=== PATIENT | male | born 1940 | race Caucasian/White ===

== ENCOUNTER 2017-10-19 13:00 | Outpatient (CLI) | payer MEDICARE ==
--- NOTE | 2017-10-20 16:42 | DEXA Report ---
DEXA: 10/19/2017 CLINICAL INDICATION: History of osteopenia. TECHNIQUE: Dual energy x-ray absorptiometry (DXA) was performed on a [id number] system. Regions measured are the AP spine, femoral neck, and, if needed, forearm. COMPARISON: None. In accordance with the International Society for Clinical Densitometry (ISCD) guidelines, data from previous exams may be reanalyzed using current recommendations and techniques. This is done to allow a more accurate basis for comparison with the current study. FINDINGS LUMBAR SPINE DATA: REGION BMD (g/cm/cm) T-SCORE Z-SCORE L1 1.105 -0.5 -0.3 L2 1.204 -0.3 -0.2 L3 1.252 0.1 0.2 L4 1.490 2.1 2.2 TOTAL L1-L4 1.283 0.5 0.6 NOTE: All evaluable vertebrae are used for classification. HIP DATA: REGION BMD (g/cm/cm) T-SCORE Z-SCORE Neck 0.879 -1.5 -0.4 TOTAL 1.063 -0.3 0.4 NOTE: The femoral neck or total proximal femur, whichever is lowest, is used for classification. IMPRESSION THE WHO CLASSIFICATION BASED ON THE INTERNATIONAL REFERENCE STANDARD: OSTEOPENIA (REFERENCE LEFT FEMORAL NECK). FRACTURE RISK: INCREASED. RECOMMENDATION: Patients with diagnosis of osteoporosis or osteopenia should have regular bone mineral density assessment. For those eligible for Medicare, routine testing is allowed once every 2 years. Testing frequency can be increased for patients who have rapidly progressing disease or for those who are receiving medical therapy to restore bone mass. COMMENT: World Health Organization (WHO) definitions for osteoporosis and osteopenia: NORMAL BMD: T-score at -1.0 or higher, fracture risk is low. OSTEOPENIA BMD: T-score between -1.0 and -2.5, fracture risk is increased. OSTEOPOROSIS BMD: T-score at -2.5 or lower, fracture risk high. National Osteoporosis Foundation recommends: 1. Obtain adequate dietary calcium (at least 1200 mg per day) and vitamin D (400 -800 international units per day). 2. Participate, as appropriate, in regular weightbearing and muscle- strengthening exercise. 3. Avoid tobacco use and reduce alcohol and caffeine intake. 4. For more detailed information see the website at www.NOF.org. MTDD
== END 2017-10-19 13:01 | disposition home or self-care (01) ==
LOC: DI 13:00
PROVIDERS: ATTEND Physician Assistant
DX: M85.88 Other specified disorders of bone density and structure, other site (principal)
CPT/HCPCS: 77080

== ENCOUNTER 2018-04-05 22:48 | Emergency (ER) | payer MEDICARE ==
--- NOTE | 2018-04-05 23:33 | ED Physician Documentation ---
PD HPI UPPER EXT INJURY - Stated complaint Stated Complaint: RT INDEX FING LAC - Chief complaint Chief Complaint: Laceration - History obtained from History obtained from: Patient - History of Present Illness Location: Right, Finger Type of injury: Laceration Where injury occurred: Home Timing - onset: Enter time (13:30), Today Timing - details: Abrupt onset Similar symptoms before: Has not had sx before Recently seen: Not recently seen - Additonal information Additional information: sustained laceration right second digit (finger) from a knife while trying to cut an avocado. he is left-hand dominant. This occurred at approximately 1:30 PM today. he dressed the wound after the injury but tonight he noticed bleeding had recurred and when he reexamined the wound, he realized it was deeper than initially perceived. Review of Systems Skin: reports: Laceration (s) Neurologic: denies: Focal weakness, Numbness PD PAST MEDICAL HISTORY - Past Medical History Past Medical History: Yes Cardiovascular: Hypertension - Past Surgical History Past Surgical History: Yes Cardiovascular: Coronary stent - Present Medications Home Medications: Ambulatory Orders Medication Instructions Recorded Confirmed Atorvastatin [Lipitor] 5 mg PO DAILY 04/05/18 04/05/18 Omeprazole 1 cap PO DAILY 04/05/18 04/05/18 hydroCHLOROthiazide [Hydrodiuril] 1 tab PO DAILY 04/05/18 04/05/18 - Allergies Allergies/Adverse Reactions: Allergies Allergy/AdvReac Type Severity Reaction Status Date / Time No Known Drug Allergies Allergy Verified 04/05/18 23:52 - Social History Does the pt smoke?: No Smoking Status: Never smoker Does the pt drink ETOH?: No Does the pt have substance abuse?: No - Immunizations Immunizations are current?: Yes - POLST Patient has POLST: No PD ED PE NORMAL - Vitals Vital signs reviewed: Yes - General General: Alert and oriented X 3, No acute distress - Neuro Neuro: No motor deficit, No sensory deficit PD ED PE EXPANDED - Extremities MAICOL UE/Hands Visual: 1 - laceration (1 cm laceration lateral (radial) aspect to nail (but no involvement of nail or nailbed)) Results - Vitals Vitals: Vital Signs - 24 hr 04/05/18 04/06/18 22:52 01:30 Temperature 36.5 C Heart Rate 78 74 Respiratory 16 16 Rate Blood Pressure 145/71 H 136/75 H O2 Saturation 95 100 Oxygen O2 Source Room air Procedures - Laceration (location) Finger right Length in cm: 1 Wound type: Linear, Into subcut fat, Clean Neurovascular status: Sensory intact, Motor intact, Vascular intact Tendon involvement: Tendon intact Anesthesia: Lidocaine 1% Wound Preparation: Chlorhexadine Skin layer closure: Nylon, Running, Size #-0 - enter number (5-0) Other: Patient tolerated well, No complications, Neurovascular intact, Dressing applied Complexity: Simple PD MEDICAL DECISION MAKING - ED course Complexity details: considered differential, d/w patient Departure - Departure Disposition: 01 Home, Self Care Clinical Impression: Laceration of finger Condition: Good Instructions: ED Laceration Hand Follow-Up: Chrissy High PA [Primary Care Provider] - Comments: Follow up with your doctor in one week for removal of the stitches Discharge Date/Time: 04/06/18 01:30
[2018-04-05] MEDS ORDERED: LIDOCAINE 1% 2 ML VIAL SUBQ STA (23:49)
[2018-04-06] MEDS ORDERED: LIDOCAINE 1% 2 ML VIAL ONE (00:01)
[2018-04-06] MEDS ORDERED: IBUPROFEN 600 MG TABLET PO STA (01:44)
[2018-04-06] MEDS ORDERED: BACITRACIN OINT TOP STA (01:50)
[2018-04-06 02:09] VITALS: BP 136/75
== END 2018-04-06 01:30 | disposition home or self-care (01) ==
LOC: ED 22:48
DX: S61.210A Laceration without foreign body of right index finger without damage to nail, initial encounter (principal); W26.0XXA Contact with knife, initial encounter; Y93.G1 Activity, food preparation and clean up; I10 Essential (primary) hypertension; Z95.5 Presence of coronary angioplasty implant and graft
CPT/HCPCS: 12001; 99282; 99283; A9270

== ENCOUNTER 2019-10-05 11:10 | Outpatient (CLI) | payer MEDICARE ==
--- NOTE | 2019-10-06 12:51 | Ultrasound Report ---
Reason: DVT LT Procedure Date: 10/05/2019 Accession Number: [id number] / [id number] Procedure: US - Duplex Ext Veins Left CPT Code: Final Report FULL RESULT: EXAM: LEFT LOWER EXTREMITY VENOUS ULTRASOUND EXAM DATE: 10/05/2019 12:03 PM. CLINICAL HISTORY: DVT LT. History of left lower extremity DVT status post trauma. COMPARISON: None. TECHNIQUE: Real-time sonographic vascular imaging was performed by the bundle collector through the lower extremity utilizing both color-flow and Doppler spectral analysis. Multiple customer operations representative static images were saved for review. FINDINGS: Common Femoral Vein (CFV): Normal. CFV-GSV Junction: Normal. Profunda Femoral Vein (PFV): Normal. Femoral Vein (FV) Prox: Normal. Femoral Vein (FV) Mid: Normal. Femoral Vein (FV) Dist: Normal. Popliteal Vein: Normal. Posterior Tibial Veins: Not well visualized, grossly patent. Peroneal Veins: Not well visualized, grossly patent. Other: None. IMPRESSION: No evidence for deep venous thrombosis. RADIA
== END 2019-10-05 11:11 | disposition home or self-care (01) ==
LOC: DI 11:10
PROVIDERS: ATTEND Physician Assistant
DX: I82.402 Acute embolism and thrombosis of unspecified deep veins of left lower extremity (principal)

== ENCOUNTER 2021-01-25 10:57 | Outpatient (CLI) | payer MEDICARE | END 2021-01-25 10:58 | disposition short-term general hospital (02) | LOC: EMS 10:57 | DX: R47.02 Dysphasia (principal) | CPT/HCPCS: A0425; A0429 ==

== ENCOUNTER 2021-05-27 07:53 | Outpatient (CLI) | payer MEDICARE ==
--- NOTE | 2021-05-27 12:33 | Ultrasound Report ---
PROCEDURE: Abdomen Complete INDICATIONS: ABD PAIN TECHNIQUE: Real-time scanning was performed of the abdominal and retroperitoneal organs, with image documentatio n. COMPARISON: None. FINDINGS: Liver: Liver is normal in size and homogeneous in echotexture. A slightly hyperechoic echotexture. Gallbladder: The gallbladder is normal without stones, sludge, wall thickening, or pericholecystic fl uid. Biliary ducts: Intrahepatic bile ducts are non-dilated. Extrahepatic bile duct caliber measures 3.1 mm. Normal is 6-7 mm or less in diameter, or 10 mm or less post-cholecystectomy. Pancreas: Visualized portions of the pancreas are sonographically normal. Spleen: Spleen is normal in size and homogeneous in echotexture. Kidneys: Kidneys are normal in size and echotexture. Right kidney measures 10.9 cm long; left kidne y measures 11.7 cm long. No hydronephrosis or nephrolithiasis. No solid masses. Cortical cyst monica ing from the lower pole of the right kidney, one arising from the midpole region, and another within the cortex, the largest measuring 2.5 cm. Septated, slightly irregular cyst in the upper pole of left kidney measuring 2.2 cm. Aorta: Visualized aorta is normal in caliber at less than 3 cm. Calcific plaque in the distal abdom inal aorta. Iliacs: Proximal common iliac arteries are normal in caliber at less than 2.5 cm. IVC: Intrahepatic inferior vena cava is patent. Miscellaneous: No free abdominal fluid. No abnormalities in the right lower quadrant area of pain. IMPRESSION: 1. No abnormalities visible in the right lower quadrant area of pain. 2. Mild hepatic steatosis or other intrinsic liver disease. 3. Normal sonographic appearance of the gallbladder. 4. Bilateral renal cysts. Reviewed by: Jennifer Vizcarra MD on 05/27/2021 12:31 PM PDT Approved by: Jennifer Vizcarra MD on 05/27/2021 12:31 PM PDT Station ID: [id number]
== END 2021-05-27 07:54 | disposition home or self-care (01) ==
LOC: DI 07:53
PROVIDERS: ATTEND Nurse Practitioner Family
DX: R10.9 Unspecified abdominal pain (principal); N28.1 Cyst of kidney, acquired

== ENCOUNTER 2021-05-29 16:45 | Emergency (ER) | payer MEDICARE ==
--- NOTE | 2021-05-29 17:03 | ED Physician Documentation ---
PD HPI FOCAL NEURO - Stated complaint Stated Complaint: CONFUSION,TROUBLE SPEAKING - History obtained from History obtained from: Patient, Family - Additional information Additional information: 80-year-old gentleman presents by private vehicle accompanied by his for evaluation of potential strokelike symptoms. She thinks starting last night but more obvious today he has had memory difficulties. Specifically she notes that there was a suspicious credit card transaction and he could not really verbalize what it was for. This is very atypical for him. 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 He denies headache. Review of Systems Ten Systems: 10 systems reviewed and negative Constitutional: reports: Reviewed and negative Eyes: reports: Reviewed and negative Ears: reports: Reviewed and negative Nose: reports: Reviewed and negative Throat: reports: Reviewed and negative Cardiac: reports: Reviewed and negative Respiratory: reports: Reviewed and negative PD PAST MEDICAL HISTORY - Past Medical History Cardiovascular: Hypertension GI: GERD - Past Surgical History Past Surgical History: Yes Ortho: Other Cardiovascular: Coronary stent - Present Medications Home Medications: Ambulatory Orders Medication Instructions Recorded Confirmed Atorvastatin [Lipitor] 5 mg PO DAILY 04/05/18 05/29/21 Omeprazole 1 cap PO DAILY 04/05/18 05/29/21 hydroCHLOROthiazide [Hydrodiuril] 1 tab PO DAILY 04/05/18 05/29/21 - Allergies Allergies/Adverse Reactions: Allergies Allergy/AdvReac Type Severity Reaction Status Date / Time No Known Drug Allergies Allergy Verified 05/29/21 17:06 - Social History Does the pt smoke?: No Smoking Status: Never smoker Does the pt drink ETOH?: No Does the pt have substance abuse?: No - Immunizations Immunizations are current?: Yes - POLST Patient has POLST: No PD ED PE NORMAL - Vitals Vital signs reviewed: Yes - General General: Alert and oriented X 3, No acute distress, Well developed/nourished - HEENT HEENT: PERRL, EOMI - Neck Neck: Supple, no meningeal sign, No bony TTP - Cardiac Cardiac: RRR, No murmur - Respiratory Respiratory: No respiratory distress, Clear bilaterally - Abdomen Abdomen: Normal bowel sounds, Soft, Non tender - Back Back: No CVA TTP, No spinal TTP - Derm Derm: Normal color, Warm and dry - Extremities Extremities: No edema, No calf tenderness / cord - Neuro Neuro: Alert and oriented X 3, No motor deficit, No sensory deficit, Normal speech, Other (Very interesting neurologic exam. Ask him what he had for liudmila carranza, he said nothing. The corrected him and said he had cereal with berries. He said that that was actually his lunch. He knows the month the day and the year, he is fluent verbalize her but intermittently is confused re short) - Psych Psych: Normal mood, Normal affect NIHSS - Time Time: 17:00 - Level of Consciousness Level of consciousness: (0) Alert, Keenly responsive LOC Questions: (0) Answers both Q's correct LOC Commands: (0) Performs both correctly - Gaze Best Gaze: (0) Normal - Visual Visual: (0) No loss - Facial Palsy Facial Palsy: (0) Normal, symmetrical movement - Motor Arms (both separate) Motor Arm (right): (0) No drift Motor Arm (left): (0) No drift - Motor Legs (both separate) Motor Leg (right): (0) No drift Motor Leg (left): (0) No drift - Limb Ataxia Limb Ataxia: (0) Absent - Sensory Sensory: (0) Normal - Best Language Best Language: (1) [id number] - Dysarthria Dysarthria: (0) Normal - Extinction and Inattention (formally neg Extinction and inattention: (0) No abnormality - Total Score/Results Total Score/Result: 1 Results - Vitals Vitals: Vital Signs - 24 hr 05/29/21 05/29/21 17:00 19:06 Temperature 36.6 C Heart Rate 65 64 Respiratory 17 21 Rate Blood Pressure 135/77 H 158/80 H O2 Saturation 97 96 Oxygen O2 Source Room air - EKG (time done) 1704 Rate: Rate (enter#) (64) Rhythm: NSR [place]: Normal Intervals: Normal ID QRS: Normal Ischemia: Normal ST segments - Labs Labs: Laboratory Tests 05/29/21 05/29/21 05/29/21 17:17 17:24 17:24 WBC 8.2 RBC 5.09 Hgb 14.6 Hct 42.9 MCV 84.3 MCH 28.7 MCHC 34.0 RDW 16.5 H Plt Count 210 MPV 9.5 Neut # (Auto) 3.6 Lymph # (Auto) 3.0 [place] # (Auto) 1.2 H Eos # (Auto) 0.3 Baso # (Auto) 0.1 Absolute Nucleated RBC 0.00 Nucleated RBC % 0.0 PT 12.9 H INR 1.2 Sodium Potassium Chloride Carbon Dioxide Anion Gap BUN Creatinine Estimated GFR (MDRD) Glucose POC Whole Bld Glucose 61 L Calcium Nasal Adenovirus (PCR) Nasal B. parapertussis DNA (PCR) Nasal Coronavir 229E PCR Nasal Coronavir HKU1 PCR Nasal Coronavir NL63 PCR Nasal Coronavir OC43 PCR Nasal Enterovir/Rhinovir PCR Nasal Influenza B PCR Nasal Influenza A PCR Nasal Parainfluen 1 PCR Nasal Parainfluen 2 PCR Nasal Parainfluen 3 PCR Nasal Parainfluen 4 PCR Nasal RSV (PCR) Nasal B.pertussis DNA PCR Nasal C.pneumoniae (PCR) Josesito Human Metapneumo PCR Nasal M.pneumoniae (PCR) Nasal SARS-CoV-2 (PCR) Ethyl Alcohol 05/29/21 05/29/21 17:24 18:27 WBC RBC Hgb Hct MCV MCH MCHC RDW Plt Count MPV Neut # (Auto) Lymph # (Auto) [place] # (Auto) Eos # (Auto) Baso # (Auto) Absolute Nucleated RBC Nucleated RBC % PT INR Sodium 140 Potassium 3.7 Chloride 101 Carbon Dioxide 28 Anion Gap 11.0 BUN 18 Creatinine 1.2 Estimated GFR (MDRD) 58 L Glucose 73 POC Whole Bld Glucose Calcium 9.6 Nasal Adenovirus (PCR) NOT DETECTED Nasal B. parapertussis DNA (PCR) NOT DETECTED Nasal Coronavir 229E PCR NOT DETECTED Nasal Coronavir HKU1 PCR NOT DETECTED Nasal Coronavir NL63 PCR NOT DETECTED Nasal Coronavir OC43 PCR NOT DETECTED Nasal Enterovir/Rhinovir PCR DETECTED A Nasal Influenza B PCR NOT DETECTED Nasal Influenza A PCR NOT DETECTED Nasal Parainfluen 1 PCR NOT DETECTED Nasal Parainfluen 2 PCR NOT DETECTED Nasal Parainfluen 3 PCR NOT DETECTED Nasal Parainfluen 4 PCR NOT DETECTED Nasal RSV (PCR) NOT DETECTED Nasal B.pertussis DNA PCR NOT DETECTED Nasal C.pneumoniae (PCR) NOT DETECTED Josesito Human Metapneumo PCR NOT DETECTED Nasal M.pneumoniae (PCR) NOT DETECTED Nasal SARS-CoV-2 (PCR) NOT DETECTED Ethyl Alcohol < 5.0 - Rads (name of study) CT angiography of the head and neck Radiology: EMP read contemporaneously (50% stenosis of left carotid bulb, otherwise negative exam.) PD MEDICAL DECISION MAKING - ED course ED course: 81-year-old gentleman with TIA symptoms versus CVA symptoms. Have been ongoing for about 24 hours on arrival so TPA was not further considered. Could also be transient global amnesia but seems a little atypical for that. CTA of the head and neck as shown. He was administered aspirin. No MRI available tomorrow and he is persistently symptomatic so probably will need observation for MRI. [facility] was called for transfer. Per the [facility], [facility] said that we could send him anywhere and [facility] was called. He was accepted by Dr. Christy Arias in [place], cobras are completed and he is stable for transport. Departure - Departure Disposition: 02 Transfer Acute Care Hosp Clinical Impression: Stroke-like symptom Condition: Stable Discharge Date/Time: 05/29/21 20:31
[2021-05-29] MEDS ORDERED: IOVERSOL 320 100 ML VIAL IVP ONE ×2 (17:12→17:43)
[2021-05-29 17:32] LABS: BASOPHILS # (AUTO) 0.1 10^3/uL (0.0-0.1); BASOPHILS % (AUTO) 1.2 %; EOSINOPHILS # (AUTO) 0.3 10^3/uL (0.0-0.7); EOSINOPHILS % (AUTO) 3.6 %; HCT - HEMATOCRIT 42.9 % (42.0-52.0); HGB - HEMOGLOBIN 14.6 g/dL (14.0-18.0); LYMPHOCYTES % (AUTO) 35.9 %; MEAN CORPUSCULAR HEMOGLOBIN 28.7 pg (27.0-31.0); MEAN CORPUSCULAR VOLUME 84.3 fL (80.0-94.0); MEAN PLATELET VOLUME 9.5 fL (7.4-11.4); MONOCYTES # (AUTO) 1.2 10^3/uL (0.0-1.0); NEUTROPHILS # (AUTO) 3.6 10^3/uL (1.5-6.6); NEUTROPHILS % (AUTO) 44.2 %; PLT - PLATELET COUNT 210 10^3/uL (130-450); RED BLOOD COUNT 5.09 10^6/uL (4.70-6.10); RED CELL DISTRIBUTION WIDTH 16.5 % (12.0-15.0); WHITE BLOOD COUNT 8.2 x10^3/uL (4.8-10.8)
[2021-05-29 17:41] LABS: BUN - BLOOD UREA NITROGEN 18 mg/dL (6-20); CALCIUM 9.6 mg/dL (8.5-10.3); CARBON DIOXIDE - CO2 28 mmol/L (21-32); CHLORIDE 101 mmol/L (101-111); CREATININE 1.2 mg/dL (0.6-1.2); ETOH - ETHANOL < 5.0 mg/dL; GFR - MDRD 58 (>89); GLUCOSE 73 mg/dL (70-100); POTASSIUM 3.7 mmol/L (3.5-5.0); SODIUM 140 mmol/L (135-145)
[2021-05-29 17:50] LABS: INR 1.2 (0.8-1.2); PT - PROTHROMBIN TIME 12.9 secs (9.9-12.6)
--- NOTE | 2021-05-29 17:58 | CT Report ---
PROCEDURE: ANGIO HEAD W/WO INDICATIONS: stroke like symptoms CONTRAST: IV CONTRAST: Optiray 320 ml: 80 PO CONTRAST: *NO PO CONTRAST TECHNIQUE: Precontrast 4.5 mm thick angled axial sections acquired from the foramen magnum to the vertex. Afte r the administration of intravenous contrast, 1 mm thick sections acquired through the [place] of [place] is. Postcontrast 4.5 mm thick sections then re-acquired from the foramen magnum to the vertex. 3-di mensional uqfpneb-klyjulsot-jphdeqxvuh (MIP) and/or volume rendering reformats were acquired of the c entral intracranial vasculature. For radiation dose reduction, the following was used: automated ex posure control, adjustment of mA and/or kV according to patient size. COMPARISON: Correlation is made with the accompanying neck CT angiogram, 05/29/2021 FINDINGS: Image quality: Excellent. Anterior circulation: Intracranial internal carotid arteries demonstrate generalized calcification a nd irregularity, yet without a hemodynamically significant stenosis. The flow within the paired anter ior cerebral arteries is normal and symmetric. The flow within the middle cerebral arteries is ruth l and symmetric. The anterior communicating artery is seen. No aneurysms are seen. Posterior circulation: Visualized portions of the vertebral arteries demonstrate normal caliber, and join to form a normal appearing basilar artery. Flow within the posterior cerebral arteries is norm al and symmetric. No aneurysms are seen. CSF spaces: Ventricles are normal in size and shape. Basal cisterns are patent. No extra-axial flu id collections. Brain: No midline shift. No intracranial bleeds or masses. [place]-white matter interface appears int act. Skull and face: Calvarium and facial bones appear intact, without suspicious lesions. Sinuses: Visualized sinuses and mastoids are clear. IMPRESSION: No significant intracranial abnormality is seen. No significant intracranial arterial abnormalities are seen. Reviewed by: Anatoly Swann MD on 05/29/2021 4:56 PM MADAN Approved by: Anatoly Swann MD on 05/29/2021 4:56 PM MADAN Station ID: [id number]
--- NOTE | 2021-05-29 18:00 | CT Report ---
PROCEDURE: ANGIO NECK W INDICATIONS: stroke like symptoms CONTRAST: IV CONTRAST: Optiray 320 ml: 80 PO CONTRAST: *NO PO CONTRAST TECHNIQUE: After the administration of intravenous contrast, 1.5 mm axial sections acquired from the aortic arch to the [place] of [place]. Coronal 3-D maximum intensity projection (MIP) and/or volume rendering ref ormats were then performed. For radiation dose reduction, the following was used: automated exposur e control, adjustment of mA and/or kV according to patient size. COMPARISON: Correlation is made with the accompanying head CT angiogram, 05/29/2021. FINDINGS: Image quality: Excellent. Carotid system: The great vessels demonstrate a conventional anatomy as they arise from the aortic a rch. The origins of the common carotid arteries appear patent. The common carotid arteries demonstr ate normal calibers and courses. The bifurcation regions demonstrate atherosclerotic irregularity an d calcification. There is approximately 50% narrowing seen involving the left proximal internal carot id artery. There is approximately 20% narrowing seen involving the right proximal internal carotid ar farida. Posterior circulation: The origins of the vertebral arteries appear patent. The more superior porti ons of the vertebral arteries demonstrate normal course and caliber. The left vertebral artery is dom inant to the right. Soft tissues: Visualized neck soft tissues demonstrate no suspicious abnormalities. The thyroid is normal in size and there are no incidental findings. Bones: No suspicious bony lesions. Visualized cervical spine appears normally aligned. Relatively prominent lower cervical spine degenerative changes can be seen. IMPRESSION: No hemodynamically significant stenosis can be seen within the arteries of the neck. Atherosclerotic calcification and irregularity can be seen involving the carotid bifurcations, with a pproximately 50% narrowing seen on the left. Incidental note is made of: Relatively prominent lower cervical spine degenerative change. The estimate of stenosis included in the report of the imaging study was calculated using the NASCET method Reviewed by: Anatoly Swann MD on 05/29/2021 4:59 PM MADAN Approved by: Anatoly Swann MD on 05/29/2021 4:59 PM MADAN Station ID: [id number]
[2021-05-29] MEDS ORDERED: ASPIRIN 325 MG TABLET PO STA (18:23)
[2021-05-29 19:08] VITALS: BP 158/80
[2021-05-29 19:31] LABS: B. PARAPERTUSSIS- RESP PCR PAN NOT DETECTED; B. PERTUSSIS- RESP PCR PANEL NOT DETECTED; C. PNEUMONIAE- RESP PCR PANEL NOT DETECTED; CORONAVIRUS 229E-RESP PCR NOT DETECTED; CORONAVIRUS HKU1-RESP PCR NOT DETECTED; CORONAVIRUS NL63-RESP PCR NOT DETECTED; CORONAVIRUS OC43-RESP PCR NOT DETECTED; HUMAN METAPNEUMOVIRUS NOT DETECTED; INFLUENZA A- RESP PCR PANEL NOT DETECTED; INFLUENZA B - RESP PCR PANEL NOT DETECTED; M. PNEUMONIAE- RESP PCR PANEL NOT DETECTED; PARAINFLUENZA VIRUS 1 NOT DETECTED; PARAINFLUENZA VIRUS 2 NOT DETECTED; PARAINFLUENZA VIRUS 3 NOT DETECTED; PARAINFLUENZA VIRUS 4 NOT DETECTED; RHINOVIRUS/ENTEROVIRUS DETECTED; RSV- RESP PCR PANEL NOT DETECTED; SARS-CoV-2 -RESP PCR PANEL NOT DETECTED
== END 2021-05-29 20:31 | disposition short-term general hospital (02) ==
LOC: ED 16:45
DX: R41.3 Other amnesia (principal); R41.0 Disorientation, unspecified; R47.01 Aphasia; Z86.73 Personal history of transient ischemic attack (TIA), and cerebral infarction without residual deficits; I10 Essential (primary) hypertension; Z20.822 Contact with and (suspected) exposure to COVID-19
CPT/HCPCS: 36415; 70496; 70498; 80048; 85025; 85610; 87631; 93005; 99283; 99285; A9270; G0480; Q9967; 0202U; 80320

== ENCOUNTER 2021-05-29 20:29 | Outpatient (CLI) | payer MEDICARE | END 2021-05-29 20:30 | disposition short-term general hospital (02) | LOC: EMS 20:29 | PROVIDERS: ATTEND Emergency Medicine | DX: R41.82 Altered mental status, unspecified (principal) | CPT/HCPCS: A0425; A0426 ==

== ENCOUNTER 2022-03-31 13:21 | Outpatient (CLI) | payer MEDICARE ==
--- NOTE | 2022-03-31 14:27 | XRAY Report ---
PROCEDURE: Ribs Bilat w/Chest 4 View INDICATIONS: RIB PAIN TECHNIQUE: 4 views of the bilateral ribs were acquired, along with a single view chest. COMPARISON: None FINDINGS: Surgical changes and devices: None. Bones and chest wall: No fractures or dislocations. No suspicious bony lesions. Overlying soft tis sues appear unremarkable. Lungs and pleura: No pleural effusions or pneumothorax. Lungs appear clear. Mediastinum: Mediastinal contours appear normal. Heart size is normal. IMPRESSION: No acute fracture. No osseous lesion. If symptoms and/or clinical suspicion for pathology continue, f urther assessment with repeat plain films, or advanced imaging (e.g., CT or bone scan) is recommended for further assessment. Reviewed by: Boy Maxwell MD on 03/31/2022 2:25 PM PDT Approved by: Boy Maxwell MD on 03/31/2022 2:25 PM PDT Station ID: [id number]
--- NOTE | 2022-03-31 14:41 | XRAY Report ---
PROCEDURE: Shoulder 2 View LT INDICATIONS: XRAY TECHNIQUE: 3 views of the shoulder were acquired. COMPARISON: None. FINDINGS: Bones: No acute fractures or dislocations. No suspicious bony lesions. Visualized ribs appear inta ct. Moderate degenerative changes are seen in the acromioclavicular joint. Soft tissues: No suspicious soft tissue calcifications. Aortic atherosclerotic calcifications are p resent. IMPRESSION: Moderate acromioclavicular joint osteoarthrosis. No acute osseous abnormality. If sympto ms persist or there is continued clinical concern, further evaluation with MRI or CT may be helpful. Reviewed by: Khoa Marie MD on 03/31/2022 2:40 PM PDT Approved by: Khoa Marie MD on 03/31/2022 2:40 PM PDT Station ID: [id number]
--- NOTE | 2022-03-31 17:19 | XRAY Report ---
PROCEDURE: Cervical Spine 2 View INDICATIONS: Pain TECHNIQUE: 3 view(s) of the cervical spine were acquired. COMPARISON: None. FINDINGS: Bones: No fractures or dislocations to the T1 level. The lateral masses of C1 appear intact on the odontoid view. No suspicious bony lesions. Severe C5-C6 and C6-7 C7 degenerative disease. Moderate C 7-T1 again disease. Mild C3-C3, C3-C4 and C4-C5 degenerative disease. Mild facet arthropathy noted th roughout the cervical spine. Soft tissues: No prevertebral soft tissue swelling. IMPRESSION: 1. Multilevel degenerative disc disease. 2. Multilevel facet arthropathy. 3. No fracture. No acute osseous lesion. If there is continued clinical concern for pathology, then M RI should be considered for further evaluation. Reviewed by: Rosita Saleh MD, PhD on 03/31/2022 5:18 PM PDT Approved by: Rosita Saleh MD, PhD on 03/31/2022 5:18 PM PDT Station ID: [id number]
== END 2022-03-31 13:22 | disposition home or self-care (01) ==
LOC: DI.S 13:21
PROVIDERS: ATTEND Physician Assistant
DX: M50.31 Other cervical disc degeneration, high cervical region (principal); M47.812 Spondylosis without myelopathy or radiculopathy, cervical region; R07.81 Pleurodynia; M19.012 Primary osteoarthritis, left shoulder

== ENCOUNTER 2022-08-25 14:21 | Outpatient (CLI) | payer MEDICARE ==
--- NOTE | 2022-08-25 15:12 | SLEEP CARE CONSULTATION ---
Information from patient questionnaire entered by Francisca Morales MA. I have reviewed and concur with the information entered by Francisca Morales MA. This document represents the service I personally performed and the decisions made by me, Judith Lyn ARNP. History of Present Illness Service Date and Time: 08/25/2022 1421 Reason for Visit: New patient, Previously diagnosed sleep apnea, sleep apnea on CPAP therapy Chief Complaint: reports: Snoring, Observed pauses in breathing Date of Onset: MANY YEARS Usual bedtime: 10-11PM Time it takes to fall asleep: HALF AN HOUR Snores at night: Yes Observed to quit breathing while asleep: Yes Sleeps alone due to snoring: No Number of times waking at night: 3-4 Reasons for waking at night: reports: Bathroom Toss, Turn, or Twitch while sleeping: No Recalls having dreams: No Usually gets out of bed at: 7-8 Feels refreshed in the morning: No Morning headache: No Sleepy or fatigued during the day: Yes Ever fallen asleep while driving: No Takes day naps: No Dreams during day naps: No Prior sleep studies: Yes Year and Where: UNKNOWN; over 10 years ago Additional HPI information: LUCILA MARRUFO was previously diagnosed to have unknown, AHI unknown, sleep apnea-hypopnea syndrome and comes in today to establish care for [CPAP][BIPAP] therapy. - Parasomnia Symptoms Ever been unable to move upon waking from sleep: No Walks in sleep: No Talks in sleep: No Ever acted out dreams in sleep: No Ever felt weak in the knees when startled or emotional: No Bothered by creepy, crawly, restless sensations in legs: No Problems with memory or concentration: Yes CPAP Compliance Data - Data Reviewed with Patient Average duration of nightly device use: 6 hours 13 secs Compliance rate %: 81.8 (142/154 days used: 02-15-21 to 07-18-2021) Current pressure setting (cmH2O): 6-20 Average residual AHI: 1.4 Central apnea: 0.4 Obstructive apnea: 0 Hypopnea: 1 Average large leak: 1.1 Lmin Compliance data discussion: He states it has been "a long time" since he got last CPAP machine, REMstar System One 60 series. He uses his CPAP regularly. He gets his supplies when he calls his DME supplier [employer]. He uses a nasal cushion mask and changes the cushion every 18 months. Subjective Missed days of use due to: reports: other (get up for bathroom and doesn't put mask back on) Patient concerns: denies: aerophagia, mask discomfort, air blowing in eyes, mask leak noise, condensation in mask/hose, nasal congestion, dry mouth, nose, throat, epistaxis Observed to snore while using device: No Current pressure setting perceived as: comfortable On therapy, patient: reports: sleeping better, awakening more refreshed, being more awake and alert during the day, more rested overall. denies: drowsiness while driving Initial [place] Sleepiness Scale score: 12 (08/2022) Past Medical History Past Medical History: reports: Hypertension, GERD, Other (STROKE 2019; high cholesterol) Social History The patient's occupation is a RE. Patient is and lives in [place]. Have you smoked in the past 12 months: No Alcohol use: Yes Alcohol amount and frequency: 2 GLASSES WEEK Caffeine use: No Family History Family history of sleep disordered breathing: No Allergies and Home Medications Known drug allergies: No Drug allergies reviewed: Yes (NKDA) Home medication list reviewed: Yes Allergy and home medication list: Allergies No Known Drug Allergies Allergy (Verified 05/29/21 17:06) Medications: HCTZ Atorvastatin Pradaxa Pantoprazole Review of Systems Ear/Nose/Throat: reports: tonsillectomy Physical Exam Vital signs obtained and entered by: [facility] Blood Pressure: 124/60 (LEFT ARM) Cuff size: regular Heart Rate: 74 O2 Saturation: 97 Height: 5 ft 11 in Weight: 191 lb 6.4 oz Body Mass Index: 26.6 BMI Classification: Overweight Neck circumference: 16 Heart: regular rate and rhythm, murmur Lungs: clear bilaterally Impression and Plan 1. Obstructive Sleep Apnea-Hypopnea Syndrome, unknown, with good treatment compliance and good apnea control. On CPAP therapy, the patient has better sleep quality and is more rested overall. Patient has an old REMstar System One. His SD card was full and did not have his current therapy report. Patient is eligible for an update of his machine. We need to obtain a copy of his last sleep study to be able to order this for him. His has been dealing with [employer] for his supplies, he is with [employer]. He states he would rather not have to repeat the sleep study. We will try to get the sleep study first and then order a new device for the patient. Patient's apnea severity and rationale for treatment to reduce apnea, improve sleep quality and reduce cardiovascular and cerebrovascular events was reviewed. I also reviewed the benefit of consistent device use of CPAP for hypertension, cerebrovascular disease (stroke) and gastric reflux. He states he may be leaving [facility] in the next month for [place], [place]. We can do telehealth folllow ups with him if he is not local. He voiced understanding. * Continue auto CPAP pressure at 6-20 cmH2O * Obtain copy of last sleep study to order new device and supplies * Notify me if snoring with mask or feeling that the pressure is too much or too little * Call this office if any problems using CPAP * Return for follow up after obtaining new CPAP, or sooner if concerns arise Counseling Topics: Spare mask, Weight loss health impact Visit Type: In Office Time Spent with Patient (minutes): 32 Provider Statement: I spent 100% of the Face to Face Visit with the patient with greater than 50% spent counseling the patient and coordination of care.
[2022-08-25 15:13] VITALS: BP 124/60
== END 2022-08-25 14:22 | disposition home or self-care (01) ==
LOC: SC 14:21
PROVIDERS: ATTEND Nurse Practitioner Family
DX: G47.33 Obstructive sleep apnea (adult) (pediatric) (principal); E66.3 Overweight; Z68.26 Body mass index [BMI] 26.0-26.9, adult
CPT/HCPCS: 99203; G0463; 99212

== ENCOUNTER 2023-02-22 14:43 | Outpatient (CLI) | payer MEDICARE ==
--- NOTE | 2023-02-22 14:33 | SLEEP CARE CONSULTATION ---
Information from patient questionnaire entered by Keshia Fitzgerald. I have reviewed and concur with the information entered by Keshia Fitzgerald. This document represents the service I personally performed and the decisions made by me, Judith Lyn ARNP. History of Present Illness Service Date and Time: 02/22/2023 1400 Previous diagnosis: Severe, Obstructive Sleep Apnea-Hypopnea Syndrome AHI: 50.6 (in 2003) Reason for follow up: first compliance after device update Equipment type: CPAP (RESMED Airsense 11, s/u 09/2022) Equipment obtained from: [employer] (getting supplies) Mask style: Nasal Backup mask available: Yes (old mask) Prior sleep studies: Yes Year and Where: UNKNOWN; over 10 years ago HPI additional information: LUCILA MARRUFO was diagnosed to have severe, AHI 50.6, obstructive sleep apnea- hypopnea syndrome and returns via video telehealth visit today for CPAP therapy first compliance after updating device follow-up. Sleep Study - Results Prior sleep studies: Yes Year and Where: UNKNOWN; over 10 years ago CPAP Compliance Data - Data Reviewed with Patient Average duration of nightly device use: 4 hours 24 minutes Compliance rate %: 60 (29/30 days used) Current pressure setting (cmH2O): 6-20 (avg 6.9) Average residual AHI: 0.6 Central apnea: 0.6 Obstructive apnea: 0 Average large leak: 1.0 lpm Subjective Missed days of use due to: reports: other (takes mask off during the night) Patient concerns: reports: dry mouth, nose, throat (not bad, just takes a sip of water at night). denies: aerophagia, mask discomfort, air blowing in eyes, mask leak noise, condensation in mask/hose, nasal congestion, epistaxis Observed to snore while using device: No Current pressure setting perceived as: comfortable On therapy, patient: reports: sleeping better, awakening more refreshed, being more awake and alert during the day, more rested overall. denies: drowsiness while driving Initial [place] Sleepiness Scale score: 12 (08/2022) Current [place] Sleepiness Scale score: 2 (02/22/23) Allergies and Home Medications Known drug allergies: No Drug allergies reviewed: Yes Home medication list reviewed: Yes (no changes) Allergy and home medication list: Allergies No Known Drug Allergies Allergy (Verified 02/21/23 15:49) Review of Systems Review of systems same as previous: Yes (no changes) Physical Exam Vital signs obtained and entered by: KESHIA Hayes MA Height: 5 ft 11 in (PER PT) Weight: 180 lb (PER PT) Body Mass Index: 25.1 BMI Classification: Overweight Impression and Plan 1. Obstructive Sleep Apnea-Hypopnea Syndrome, severe, with fair treatment compliance and good apnea control. On CPAP therapy, the patient has better sleep quality and is more rested overall. Patient has significant improvement of his sleep apnea and is satisfied with current CPAP therapy. He gets a little dry mouth but states it is not a problem. He sometimes takes his mask off during the night and this is affecting his compliance. He will try to leave and or replace mask when found off his face during the night. Patient's apnea severity and rationale for treatment to reduce apnea, improve sleep quality and reduce cardiovascular and cerebrovascular events was reviewed. I also reviewed the benefit of consistent device use of CPAP for hypertension, cerebrovascular disease (stroke 2020) and gastric reflux. 2. Overweight, unspecified. Currently patients BMI is 25.1. Obesity increases the risk of apnea, CPAP pressure requirements and overall health risks especially cardiovascular and diabetes. Thus patient is advised to maintain weight. * Continue auto CPAP pressure at 6-20 cmH2O * Notify me if snoring with mask or feeling that the pressure is too much or too little * Maintain a healthy weight * Call this office if any problems using CPAP * Return for follow up in 1 year, or sooner if concerns arise Counseling Topics: Spare mask, Weight loss health impact Visit Type: Telehealth Video Video Type: [facility] Patient Location: Home Location of Provider: Office Patient agrees and consents to this telehealth visit type: Yes Patient agrees to have their insurance billed: Yes Time Spent with Patient (minutes): 11 Provider Statement: I spent 100% of the Telehealth Video Call with the patient with greater than 50% spent counseling the patient and coordination of care.
== END 2023-02-22 14:44 | disposition home or self-care (01) ==
LOC: SC 14:43
PROVIDERS: ATTEND Nurse Practitioner Family
DX: G47.33 Obstructive sleep apnea (adult) (pediatric) (principal); E66.3 Overweight; Z68.25 Body mass index [BMI] 25.0-25.9, adult